=== PATIENT | female | born 2000 ===

== ENCOUNTER 2022-08-03 13:31 | Outpatient (CLI) | payer OTHER | END 2022-08-03 15:17 | disposition home or self-care (01) | LOC: PRENATAL 13:31 | PROVIDERS: ATTEND Obstetrics & Gynecology Maternal & Fetal Medicine | DX: O35.9XX0 Maternal care for (suspected) fetal abnormality and damage, unspecified, not applicable or unspecified (principal); O35.3XX0 Maternal care for (suspected) damage to fetus from viral disease in mother, not applicable or unspecified; O43.90 Unspecified placental disorder, unspecified trimester; Z3A.24 24 weeks gestation of pregnancy ==

== ENCOUNTER 2022-09-15 09:11 | Outpatient (CLI) | payer OTHER | END 2022-09-15 10:20 | disposition home or self-care (01) | LOC: PRENATAL 09:11 | PROVIDERS: ATTEND Obstetrics & Gynecology Maternal & Fetal Medicine | DX: O26.849 Uterine size-date discrepancy, unspecified trimester (principal); O43.90 Unspecified placental disorder, unspecified trimester; Z3A.30 30 weeks gestation of pregnancy ==

== ENCOUNTER 2022-10-24 09:39 | Outpatient (CLI) | payer OTHER | END 2022-10-24 10:45 | disposition home or self-care (01) | LOC: PRENATAL 09:39 | PROVIDERS: ATTEND Obstetrics & Gynecology Maternal & Fetal Medicine | DX: O26.849 Uterine size-date discrepancy, unspecified trimester (principal); O36.8199 Decreased fetal movements, unspecified trimester, other fetus; O36.5990 Maternal care for other known or suspected poor fetal growth, unspecified trimester, not applicable or unspecified; O24.419 Gestational diabetes mellitus in pregnancy, unspecified control; Z3A.36 36 weeks gestation of pregnancy ==